=== PATIENT | male | born 1995 | race Caucasian/White ===

== ENCOUNTER → 2016-11-29 | Outpatient (REF) | payer OTHER ==
[2016-11-29 20:00] LABS: AMYLASE 43 U/L (25-115)
== END ==
LOC: M LAB REF 16:35
PROVIDERS: ATTEND Nurse Practitioner Adult Health
DX: R10.84 Generalized abdominal pain (principal)

== ENCOUNTER → 2016-11-30 | Outpatient (REF) | payer OTHER | LOC: M LAB REF 12:08 | PROVIDERS: ATTEND Nurse Practitioner Adult Health | DX: L02.211 Cutaneous abscess of abdominal wall (principal) ==

== ENCOUNTER → 2016-12-29 | Outpatient (REF) | payer OTHER | LOC: M LAB REF 16:22 | PROVIDERS: ATTEND Nurse Practitioner Adult Health | DX: R10.84 Generalized abdominal pain (principal) ==

== ENCOUNTER → 2019-03-16 | Outpatient (CLI) | payer BC, OTHER ==
--- NOTE | 2019-03-16 15:55 | REP ---
HISTORY: Pain. COMPARISON: There are no priors for comparison. FINDINGS: No acute fracture or destructive osseous lesion. The mortise is intact. Electronically Signed by Ish Barron DO 03/16/2019 04:04 P
--- NOTE | 2019-03-16 15:55 | REP ---
HISTORY: Pain. FINDINGS: The joint spaces are symmetric and relatively well maintained. There is no evidence of acute fracture or destructive osseous lesion. IMPRESSION: Negative. Electronically Signed by Ish Barron DO 03/16/2019 04:04 P
== END ==
LOC: M WUC 14:18
PROVIDERS: ATTEND Nurse Practitioner Adult Health
DX: M79.672 Pain in left foot (principal); M25.572 Pain in left ankle and joints of left foot

== ENCOUNTER 2020-02-12 10:50 | Emergency (ER) | payer OTHER, BC ==
[~2020-02-12] VITALS: Ht 175.3 cm; Wt 87.0 kg
[2020-02-12 10:50] VITALS: BP 138/77
[~2020-02-12 10:50] MED LIST: RALTEGRAVIR 400 MG TAB (ISENTRESS) PO SCH; TRUVADA 200MG/300MG TABLET PO SCH
[2020-02-12] MEDS ORDERED: TRUVTAB PO (11:20)
[2020-02-12] MEDS ORDERED: RALT40TA PO (11:20)
[2020-02-12] MEDS ORDERED: RALTEGRAVIR 400 MG TAB (ISENTRESS) PO ONE (11:30)
[2020-02-12] MEDS ORDERED: TRUVADA 200MG/300MG TABLET PO ONE (11:30)
[2020-02-12] MEDS ORDERED: EXPOSURE KIT-ADULT 7 DAY SUPPLY PO ONE (11:30)
[2020-02-12 11:40] LABS: BASO % 0.3 % (0.0-1.0); EOS % 0.5 % (0.0-3.0); HEMATOCRIT 46.8 % (42.0-52.0); HEMOGLOBIN 15.6 g/dl (13.5-17.5); LYMPH # 1.9 10^3/uL (1.5-5.0); LYMPH % 22.4 % (24.0-44.0); MEAN CORPUSCULAR HEMOGLOBIN 29.8 pg (27.0-33.0); MEAN CORPUSCULAR HGB CONC 33.3 g/dl (32.0-36.5); MEAN CORPUSCULAR VOLUME 89.5 fl (80.0-96.0); MONO # 0.8 10^3/uL (0.0-0.8); MONO % 9.8 % (0.0-5.0); NEUTROPHILS # 5.7 10^3/uL (1.5-8.5); NEUTROPHILS % 66.8 % (36.0-66.0); PLATELET COUNT, AUTOMATED 466 10^3/uL (150-450); RED BLOOD COUNT 5.23 10^6/uL (4.30-6.10); WHITE BLOOD COUNT 8.6 10^3/uL (4.0-10.0)
[2020-02-12 12:05] LABS: ALBUMIN 3.9 GM/DL (3.2-5.2); ALT/SGPT 32 U/L (12-78); BLOOD UREA NITROGEN 10 MG/DL (7-18); CALCIUM LEVEL 9.6 MG/DL (8.5-10.1); CARBON DIOXIDE LEVEL 27 MEQ/L (21-32); CHLORIDE LEVEL 102 MEQ/L (98-107); CREATININE FOR GFR 1.01 MG/DL (0.70-1.30); GLOMERULAR FILTRATION RATE > 60.0 (>60); GLUCOSE, FASTING 84 MG/DL (70-100); POTASSIUM SERUM 4.7 MEQ/L (3.5-5.1); SODIUM LEVEL 137 MEQ/L (136-145); TOTAL PROTEIN 7.8 GM/DL (6.4-8.2)
[2020-02-13 11:15] LABS: HEPATITIS B SURFACE ANTIBODY NEGATIVE (POSITIVE)
[2020-02-13 11:24] LABS: HEPATITIS B SURFACE ANTIGEN NEGATIVE (NEGATIVE)
[2020-02-13 11:52] LABS: HEPATITIS C VIRUS ABY INDEX 0.1 INDEX (<0.8)
[2020-02-13 11:54] LABS: HIV 1&2 SCREEN CENTAUR NEGATIVE (NEGATIVE)
== END 2020-02-12 12:22 | disposition home or self-care (01) ==
LOC: M ED 10:50
DX: Z77.21 Contact with and (suspected) exposure to potentially hazardous body fluids (principal)

== ENCOUNTER → 2021-12-31 | Outpatient (CLI) | payer BC, OTHER ==
[~2021-12-31] MED LIST changes: +EMTR1TAB16 PO; +RALT40TA PO; -RALTEGRAVIR 400 MG TAB (ISENTRESS) PO SCH; -TRUVADA 200MG/300MG TABLET PO SCH
== END ==
LOC: M CARPUL 13:43
PROVIDERS: ATTEND Internal Medicine Cardiovascular Disease
DX: R94.31 Abnormal electrocardiogram [ECG] [EKG] (principal); I08.1 Rheumatic disorders of both mitral and tricuspid valves

== ENCOUNTER → 2024-08-24 | Outpatient (REF) | payer OTHER ==
[2024-08-24 13:37] LABS: HEMATOCRIT 46.2 % (42.0-52.0)
[2024-08-24 14:03] LABS: IRON (FE) 132 UG/DL (65-175)
[2024-08-24 14:04] LABS: PERCENT SATURATION 44.6 % (19.7-50.0); TOTAL IRON BINDING CAPACITY 296 UG/DL (250-425)
[2024-08-24 14:05] LABS: FERRITIN 121.6 NG/ML (10.5-307.3)
[2024-08-24 14:17] LABS: HEPATITIS B SURFACE ANTIGEN NEGATIVE (NEGATIVE)
[2024-08-24 14:37] LABS: HEPATITIS B CORE ANTIBODY IGM NEGATIVE (NEGATIVE)
[2024-08-24 14:38] LABS: HEPATITIS C VIRUS ABY INDEX < 0.02 INDEX (<0.8)
[2024-08-28 07:28] LABS: ANA SCREEN, IFA POSITIVE (NEGATIVE); ANA TITER 1:40 titer (<1:40)
[2024-08-28 17:47] LABS: LYME TOTAL ANTIBODY CIA <= 0.90 Index (<=0.90)
== END ==
LOC: M LAB REF 13:00
PROVIDERS: ATTEND Nurse Practitioner Adult Health
DX: R74.01 Elevation of levels of liver transaminase levels (principal)

== ENCOUNTER 2025-05-12 15:38 | Emergency (ER) | payer OTHER ==
[~2025-05-12] VITALS: Ht 175.3 cm; Wt 79.5 kg
[2025-05-12] MEDS ORDERED: HOLTER MONITOR XX (16:07)
[2025-05-12 16:23] LABS: BASO # 0.0 10^3/uL (0.0-0.2); BASO % 0.3 % (0.0-1.0); EOS # 0.0 10^3/uL (0.0-0.5); EOS % 0.7 % (0.0-3.0); LYMPH # 1.8 10^3/uL (1.5-5.0); LYMPH % 29.7 % (24.0-44.0); MONO # 0.7 10^3/uL (0.0-0.8); MONO % 11.1 % (2.0-8.0); NEUTROPHILS # 3.5 10^3/uL (1.5-8.5); NEUTROPHILS % 58.0 % (36.0-66.0); PLATELET COUNT, AUTOMATED 228 10^3/uL (150-450)
[2025-05-12 16:49] LABS: CALCIUM LEVEL 9.1 MG/DL (8.5-10.1); CARBON DIOXIDE LEVEL 32 MMOL/L (20-31); CHLORIDE LEVEL 100 MMOL/L (98-107); CK-MB VALUE MASS 1.5 NG/ML (<3.6); CREATININE FOR GFR 0.84 MG/DL (0.70-1.30); GLOMERULAR FILTRATION RATE > 90.0 (>60); MAGNESIUM LEVEL 1.8 MG/DL (1.8-2.4); POTASSIUM SERUM 4.0 MMOL/L (3.5-5.1); SODIUM LEVEL 138 MMOL/L (136-145)
[2025-05-12 16:51] LABS: FREE T4 1.37 NG/DL (0.89-1.76)
[2025-05-12 16:55] LABS: CPK CREATINE PHOSPHOKINASE 264 U/L (46-171); MB/CK RELATIVE INDEX 0.56 (< OR =4)
[2025-05-12 17:50] LABS: CK-MB VALUE MASS 1.3 NG/ML (<3.6)
[2025-05-12 17:53] LABS: CPK CREATINE PHOSPHOKINASE 241.0 U/L (46-171); MB/CK RELATIVE INDEX 0.53 (< OR =4)
[2025-05-12 18:00] VITALS: BP 143/67; TEMP 97.6; O2SAT 98
== END 2025-05-12 18:08 | disposition home or self-care (01) ==
LOC: M ED 15:38
DX: R00.2 Palpitations (principal); Z90.49 Acquired absence of other specified parts of digestive tract

== ENCOUNTER → 2025-06-08 | Outpatient (CLI) | payer OTHER ==
[~2025-06-08] MED LIST changes: +HOLTER MONITOR XX
== END ==
LOC: M EKG 10:01
PROVIDERS: ATTEND Emergency Medicine
DX: R00.2 Palpitations (principal)

== ENCOUNTER → 2025-06-08 | Outpatient (CLI) | payer OTHER | LOC: M EKG 10:50 | PROVIDERS: ATTEND Nurse Practitioner Adult Health | DX: R00.2 Palpitations (principal) ==